=== PATIENT | female | born 2000 | race Caucasian/White ===

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

== ENCOUNTER 2021-07-17 10:53 | Emergency (ER) | payer OTHER ==
[~2021-07-17] VITALS: Ht 157.5 cm; Wt 55.0 kg
[~2021-07-17 10:53] MED LIST changes: -CYCL-331 PO; +CYCL10TA19 PO
[2021-07-17] MEDS ORDERED: ONDANSETRON PF 4 MG/2 ML VIAL. IVP ONE (11:15)
[2021-07-17] MEDS ORDERED: IOHEXOL 300 MG/ML 75 ML VIAL. IV ONE (11:15)
[2021-07-17] MEDS ORDERED: IV NORMAL SALINE 1,000ML 1,000 ML IV SCH (11:15)
--- NOTE | 2021-07-17 11:15 | PHYS DOC ---
Past History Past Medical History: UTI Additional Past Medical Histor: Chronic back pain, hx of frequent thumb dislocations (VINCENT RIVERA APRN) Past Surgical History: Other Additional Past Surgical Histo: Right thumb ligament repair, Right hernia repair, back pain (VINCENT RIVERA APRN) Smoking: Non-smoker Alcohol Use: None Drug Use: None (VINCENT RIVERA APRN) General Adult EDM: Chief Complaint: ABDOMINAL PAIN HPI: HPI: Patient is a 20-year-old female who presents to the emergency department for right lower quadrant pain, nausea and diarrhea that started this morning. Patient rates her pain 7 out of 10. It radiates to her back. It is worse with movement. No treatment prior to arrival. Patient does have history of pyelonep hritis. Patient denies vomiting, dysuria, fevers, urinary frequency or urgency, sick exposures, travel, blood in her vomit or stools. Last meal was at 2100 yesterday. (VINCENT RIVERA APRN) Review of Systems: Review of Systems: 14 body systems of the review of systems have been reviewed. See HPI for pertinent positive and negative responses, otherwise all other systems are negative, nonpertinent or noncontributory (VINCENT RIVERA APRN) Allergies: Allergies: Allergies Coded Allergies Type Severity Reaction Last Updated Verified No Known Allergies Allergy Unknown 07/16/17 Yes (VINCENT RIVERA APRN) Physical Exam: PE: Constitutional: Well developed, well nourished, no acute distress, non-toxic appearance. [] HENT: Normocephalic, atraumatic, bilateral external ears normal, oropharynx moist, no oral exudates, nose normal. [] Eyes: PERRL, EOMI, conjunctiva normal, no discharge. [] Neck: Normal range of motion, no stridor Cardiovascular:Heart rate regular rhythm, no murmur [] Lungs & Thorax: Bilateral breath sounds clear to auscultation [] Abdomen: Bowel sounds normal, soft, right lower quadrant pain with palpation, no rebound tenderness, negative for murphys sign, negative Rovsing sign, no masses, no pulsatile masses. [] Skin: Warm, dry, no erythema, no rash. [] Back: No tenderness, no CVA tenderness. [] Extremities: No tenderness, no cyanosis, no clubbing, ROM intact, no edema. [] Neurologic: Alert and oriented X 3, normal motor function, normal sensory function, no focal deficits noted. [] Psychologic: Affect normal, judgement normal, mood normal. [] (VINCENT RIVERA APRN) Current Patient Data: Labs: Laboratory Tests Test 07/17/21 11:16 07/17/21 11:18 07/17/21 11:32 Urine Collection Type Unknown Urine Color Yellow Urine Clarity Cloudy Urine pH 5.0 Urine Specific Oriska >=1.030 Urine Protein Neg Urine Glucose (UA) Neg mg/dL Urine Ketones (Stick) Trace mg/dL Urine Blood Neg Urine Nitrite Neg Urine Bilirubin Neg Urine Urobilinogen Dipstick 0.2 mg/dL Urine Leukocyte Esterase Trace Urine RBC Occ /HPF Urine WBC 5-10 /HPF Urine Squamous Epithelial Cells Many /LPF Urine Bacteria Many /HPF Urine Mucus Slight /LPF White Blood Count 9.2 x10^3/uL Red Blood Count 4.63 x10^6/uL Hemoglobin 13.0 g/dL Hematocrit 38.9 % Mean Corpuscular Volume 84 fL Mean Corpuscular Hemoglobin 28 pg Mean Corpuscular Hemoglobin Concent 34 g/dL Red Cell Distribution Width 15.8 % Platelet Count 317 x10^3/uL Neutrophils (%) (Auto) 61 % Lymphocytes (%) (Auto) 27 % Monocytes (%) (Auto) 8 % Eosinophils (%) (Auto) 4 % Basophils (%) (Auto) 0 % Neutrophils # (Auto) 5.6 x10^3uL Lymphocytes # (Auto) 2.5 x10^3/uL Monocytes # (Auto) 0.7 x10^3/uL Eosinophils # (Auto) 0.3 x10^3/uL Basophils # (Auto) 0.0 x10^3/uL Sodium Level 141 mmol/L Potassium Level 3.9 mmol/L Chloride Level 104 mmol/L Carbon Dioxide Level 25 mmol/L Anion Gap 12 Blood Urea Nitrogen 7 mg/dL Creatinine 0.8 mg/dL Estimated GFR (Cockcroft-Gault) 92.4 BUN/Creatinine Ratio 9 Glucose Level 86 mg/dL Calcium Level 9.4 mg/dL Total Bilirubin 0.3 mg/dL Aspartate Amino Transf (AST/SGOT) 13 U/L Alanine Aminotransferase (ALT/SGPT) 19 U/L Alkaline Phosphatase 53 U/L Total Protein 8.1 g/dL Albumin 4.0 g/dL Albumin/Globulin Ratio 1.0 Lipase 105 U/L Bedside Urine HCG, Qualitative hcg negative Current Medications Medications (Trade) Dose Ordered Sig/Natty Route PRN Reason Start Time Stop Time Status Last Admin Dose Admin Sodium Chloride 1,000 ml @ 1,000 mls/hr Q1H IV 07/17/21 11:15 07/17/21 12:14 DC 07/17/21 11:39 Ondansetron HCl (Zofran) 4 mg 1X ONCE IVP 07/17/21 11:15 07/17/21 11:16 DC 07/17/21 11:40 Fentanyl Citrate (Fentanyl 2ml Vial) 50 mcg 1X ONCE IVP 07/17/21 11:15 07/17/21 11:16 DC 07/17/21 11:41 Iohexol (Omnipaque 300 Mg/ml) 75 ml 1X ONCE IV 07/17/21 11:15 07/17/21 11:18 DC 07/17/21 11:26 Ceftriaxone Sodium 1 gm/ Sodium Chloride 50 ml @ 100 mls/hr 1X ONCE IV 07/17/21 13:45 07/17/21 14:14 UNV (VINCENT RIVERA APRN) EKG: EKG: [] (VINCENT RIVERA APRN) Radiology/Procedures: Radiology/Procedures: []PROCEDURE: CT ABD PELV W/ IV CONTRST ONLY EXAM: Abdomen and pelvis CT with intravenous contrast. HISTORY: Right lower quadrant pain. TECHNIQUE: Computed tomographic images of the abdomen and pelvis were obtained following the administration of intravenous contrast. Multiplanar reformatting was performed. *One or more of the following individualized dose reduction techniques were utilized for this examination: 1. Automated exposure control. 2. Adjustment of the mA and/or kV according to patient size. 3. Use of iterative reconstruction technique. COMPARISON: 06/24/2020. PROCEDURE: US PELVIS W/TV EXAM: Sonogram. HISTORY: Right pelvic pain. TECHNIQUE: Transabdominal and transvaginal sonographic imaging of the pelvis was performed. COMPARISON: CT obtained on the same date. FINDINGS: The uterus measures 7.1 x 3.2 x 2.5 cm. The endometrial stripe measures 2.3 mm in thickness. There is slight asymmetry in the size of the right greater than left ovary. There are multiple bilateral ovarian follicles and a predominant peripheral distribution. The largest of these measures 10 mm on the left and contains a small nodular follicle. There is a small amount of pelvic free fluid. IMPRESSION: 1. Multiple ovarian follicles and a predominantly peripheral distribution. This may be physiologic. However, this lesion can also be seen with polycystic ovary syndrome. No ovarian or paraovarian cyst is seen sonographically. 2. Small amount of nonspecific pelvic free fluid, within physiologic limits for a premenopausal female. Electronically signed by: Trini Ugarte MD (07/17/2021 1:16 PM) [id number] DICTATED AND SIGNED BY: TRINI UGARTE MD DATE: 07/17/21 1312 CC: VINCENT RIVERA [employer]; VERONA ANTHONY MD ~MTH0 0 FINDINGS: Evaluation of the lower thorax is unremarkable. There is focal fatty infiltration of the liver along the falciform ligament. There is slight periportal edema, likely due to relative rapid bolus patient hydration. There is no suspicious hepatic lesion. There is a slightly elongated right hepatic lobe, likely a normal variant. The gallbladder, pancreas, stomach and adrenal glands are unremarkable. There is heterogeneous enhancement of the spleen likely due to timing of contrast administration. There is no hydronephrosis. There is no convincing appendicitis. There is superficial wall thickening involving the ascending and transverse colon likely due to relative under distention. There is no convincing surrounding inflammatory stranding to suggest acute colitis. There is a mildly distended loop of small bowel within the left lower quadrant and left mid abdomen. There is fecal material within the distal small bowel. The bladder is nearly empty. There is a peripherally enhancing right adnexal cy st measuring 2.6 cm, likely an involuting ovarian or paraovarian cyst. There is adjacent prominent right ovary containing multiple follicles. The left ovary is unremarkable. There is trace pelvic free fluid. The aorta is normal in caliber. There is no lymphadenopathy. There are 6 nonrib- bearing lumbar segments. There is a moderate to severe chronic left lateral wedge compression deformity of L1-2. There is lumbar scoliosis. There is grade 1 anterolisthesis of L6 on S1. 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 IMPRESSION: 1. Mildly distended loops of small bowel within the left lower quadrant and lower midabdomen, some which contain fecal material. This can be seen with partial obstruction. 2. 2.6 cm suspected involuting right ovarian or paraovarian cyst. 3. No convincing appendicitis. Electronically signed by: Trini Ugarte MD (07/17/2021 11:48 AM) [id number] DICTATED AND SIGNED BY: TRINI UAGRTE MD DATE: 07/17/21 1140 CC: VINCENT RIVERA APRN; VERONA ANTHONY MD ~MTH0 0 (VINCENT RIVERA APRN) Heart Score: C/O Chest Pain: N/A Risk Factors: Risk Factors: DM, Current or recent (<one month) smoker, HTN, HLP, family history of CAD, obesity. Risk Scores: Score 0 - 3: 2.5% MACE over next 6 weeks - Discharge Home Score 4 - 6: 20.3% MACE over next 6 weeks - Admit for Clinical Observation Score 7 - 10: 72.7% MACE over next 6 weeks - Early Invasive Strategies (VINCENT RIVERA APRN) Course & Med Decision Making: Course & Med Decision Making Pertinent Labs and Imaging studies reviewed. (See chart for details) [] Patient presents the ER for right lower quadrant pain with nausea and diarrhea. Work-up in the ER consisted of blood work, urinalysis, and CT imaging of abdomen. Patient treated with IV fluids, nausea and pain medication. Patient reports improvement in her symptoms following treatment in the emergency department. Patient's urinalysis was positive for urinary tract infection she was started on antibiotic. Patient CT scan of her abdomen shows mildly distended loops of small bowel in the left lower quadrant indicating a partial bowel obstruction and 2.6 cm right ovarian cyst. A ultrasound was performed to confirm that there was good blood flow to ovaries and it showed no acute findings. I discussed patient's case with Dr. Freedman at [facility] general surgery and he agreed to see the patient over there is a consult. I spoke to Dr. Morris at [facility] and he agreed to accept the patient under his services for admission. Pain medication ordered as pt states pain is intermittent. I discussed patient's findings with her as well as treatment plan and she is agreeable at this time. Patient will be transferred to [facility] via EMS. (VINCENT RIVERA APRN) Course & Med Decision Making I was the Attending physician on the above date of service of this patient. This patient was evaluated, examined, treated, and dispositioned from the emergency department by the mid-level practitioner. I reviewed care of patient while in ER setting and agreed to need for hospital transfer for surgical consultation Electronically signed, Janett Roa DO (JANETT ROA DO) Jagdeep Disclaimer: Dragmichelle Disclaimer: This electronic medical record was generated, in whole or in part, using a voice recognition dictation system. (VINCENT RIVERA APRN) Departure Departure: Impression: Primary Impression: Abdominal pain Qualified Codes: R10.31 - Right lower quadrant pain Additional Impression: Partial bowel obstruction Qualified Codes: K56.600 - Partial intestinal obstruction, unspecified as to cause Disposition: 02 SHORT TERM [facility]OSP[facility] Condition: GOOD Referrals: VERONA ANTHONY MD (PCP) VINCENT RIVERA APRN Jul 17, 2021 11:14 JANETT ROA DO Jul 17, 2021 17:19
[2021-07-17 11:39] LABS: BASO % 0 % (0-3); EOS # 0.3 x10^3/uL (0.0-0.7); EOS % 4 % (0-3); HEMATOCRIT 38.9 % (36.0-47.0); LYMPH # 2.5 x10^3/uL (1.0-4.8); LYMPH % 27 % (24-48); MEAN CORPUSCULAR HEMOGLOBIN 28 pg (25-35); MEAN CORPUSCULAR HGB CONC 34 g/dL (31-37); MEAN CORPUSCULAR VOLUME 84 fL (79-100); MONO # 0.7 x10^3/uL (0.0-1.1); MONO % 8 % (0-9); NEUT # 5.6 x10^3uL (1.8-7.7); NEUT % 61 % (31-73); PLATELET COUNT 317 x10^3/uL (140-400); RED BLOOD COUNT 4.63 x10^6/uL (3.50-5.40); RED CELL DISTRIBUTION WIDTH 15.8 % (11.5-14.5); WHITE BLOOD COUNT 9.2 x10^3/uL (4.0-11.0)
--- NOTE | 2021-07-17 11:50 | RAD ---
EXAM: Abdomen and pelvis CT with intravenous contrast. HISTORY: Right lower quadrant pain. TECHNIQUE: Computed tomographic images of the abdomen and pelvis were obtained following the administ ration of intravenous contrast. Multiplanar reformatting was performed. *One or more of the following individualized dose reduction techniques were utilized for this examina tion: 1. Automated exposure control. 2. Adjustment of the mA and/or kV according to patient size. 3. Use of iterative reconstruction technique. COMPARISON: 06/24/2020. FINDINGS: Evaluation of the lower thorax is unremarkable. There is focal fatty infiltration of the li evelyn along the falciform ligament. There is slight periportal edema, likely due to relative rapid bolu s patient hydration. There is no suspicious hepatic lesion. There is a slightly elongated right hepat ic lobe, likely a normal variant. The gallbladder, pancreas, stomach and adrenal glands are unremarka ble. There is heterogeneous enhancement of the spleen likely due to timing of contrast administration . There is no hydronephrosis. There is no convincing appendicitis. There is superficial wall thickening involving the ascending and transverse colon likely due to relative under distention. There is no convincing surrounding inflamm atory stranding to suggest acute colitis. There is a mildly distended loop of small bowel within the left lower quadrant and left mid abdomen. There is fecal material within the distal small bowel. The bladder is nearly empty. There is a peripherally enhancing right adnexal cyst measuring 2.6 cm, l ikely an involuting ovarian or paraovarian cyst. There is adjacent prominent right ovary containing m ultiple follicles. The left ovary is unremarkable. There is trace pelvic free fluid. The aorta is normal in caliber. There is no lymphadenopathy. There are 6 nonrib-bearing lumbar segmen ts. There is a moderate to severe chronic left lateral wedge compression deformity of L1-2. There is lumbar scoliosis. There is grade 1 anterolisthesis of L6 on S1. There are bilateral pars interarticul odilon defects at this level. 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 IMPRESSION: 1. Mildly distended loops of small bowel within the left lower quadrant and lower midabdomen, some wh ich contain fecal material. This can be seen with partial obstruction. 2. 2.6 cm suspected involuting right ovarian or paraovarian cyst. 3. No convincing appendicitis. Electronically signed by: Trini Beach MD (07/17/2021 11:48 AM) [id number]
[2021-07-17 12:00] LABS: CALCIUM 9.4 mg/dL (8.5-10.1); CREATININE 0.8 mg/dL (0.6-1.0); GFR 92.4; POTASSIUM 3.9 mmol/L (3.5-5.1)
[2021-07-17 12:02] LABS: BILIRUBIN,URINE NEG (NEG); CLARITY,URINE CLOUDY; COLOR,URINE YELLOW; GLUCOSE,URINE NEG (NEG)
[2021-07-17 12:03] LABS: BACTERIA,URINE MANY /HPF (0-FEW); NITRITE,URINE NEG (NEG); RBC,URINE OCC /HPF (0-2); SQUAMOUS EPITHELIAL CELL,UR MANY /LPF; UROBILINOGEN,URINE 0.2 mg/dL (0.2 mg/dL)
[2021-07-17 12:05] LABS: TOTAL BILIRUBIN 0.3 mg/dL (0.2-1.0); TOTAL PROTEIN 8.1 g/dL (6.4-8.2)
--- NOTE | 2021-07-17 13:19 | RAD ---
EXAM: Sonogram. HISTORY: Right pelvic pain. TECHNIQUE: Transabdominal and transvaginal sonographic imaging of the pelvis was performed. COMPARISON: CT obtained on the same date. FINDINGS: The uterus measures 7.1 x 3.2 x 2.5 cm. The endometrial stripe measures 2.3 mm in thickness . There is slight asymmetry in the size of the right greater than left ovary. There are multiple bila teral ovarian follicles and a predominant peripheral distribution. The largest of these measures 10 m m on the left and contains a small nodular follicle. There is a small amount of pelvic free fluid. IMPRESSION: 1. Multiple ovarian follicles and a predominantly peripheral distribution. This may be physiologic. H owever, this lesion can also be seen with polycystic ovary syndrome. No ovarian or paraovarian cyst i s seen sonographically. 2. Small amount of nonspecific pelvic free fluid, within physiologic limits for a premenopausal femal e. Electronically signed by: Trini Beach MD (07/17/2021 1:16 PM) [id number]
[2021-07-17] MEDS ORDERED: IV NORMAL SALINE 50ML 50 ML ONE (13:49)
[2021-07-17] MEDS ORDERED: cefTRIAXone SODIUM 1 GM VIAL ONE (13:49)
[2021-07-17] MEDS ORDERED: MORPHINE SULFATE 2 MG/ML DISP.SYRIN. ONE (14:52)
[2021-07-17] MEDS ORDERED: MORPHINE SULFATE 2 MG/ML DISP.SYRIN. IV ONE (15:00)
[2021-07-17 15:04] VITALS: BP 127/60
== END 2021-07-17 15:32 | disposition short-term general hospital (02) ==
LOC: ER 10:53
DX: K56.600 Partial intestinal obstruction, unspecified as to cause (principal); G89.29 Other chronic pain; Z20.822 Contact with and (suspected) exposure to COVID-19; Z87.440 Personal history of urinary (tract) infections
CPT/HCPCS: 36415; 74177; 76830; 76856; 80053; 81001; 81025; 83690; 85025; 87086; 87426; 96361; 96365; 96375; 96376; 99285; C9803; J0696; J2270; J2405; J3010; J7030; Q9967; U0003